=== PATIENT | female | born 1980 | race Caucasian/White ===

== ENCOUNTER 2016-07-18 06:41 | Inpatient (IN) | payer BC ==
[~2016-07-18] VITALS: Ht 157.5 cm; Wt 77.1 kg
[2016-07-18] VITALS (16 sets, daily range): BP systolic 111–138; BP diastolic 57–82
[~2016-07-18 06:41] MED LIST: Chromagen, Feogen, M PO; Motrin PO
[2016-07-18] MEDS ORDERED: PRENATAL TABLE1 EAC3 PO (07:20)
[2016-07-18] MEDS ORDERED: FISH OIL300 MG PO (07:21)
[2016-07-18] MEDS ORDERED: PROBIOTIC1 EAC1 PO (07:21)
[2016-07-18] MEDS ORDERED: TUMS500 MG PO (07:22)
[2016-07-18] MEDS ORDERED: ZANTAC150 MG PO (07:22)
[2016-07-18 09:57] LABS: EOSINOPHIL COUNT 0.1 K/uL (0-0.3); HEMATOCRIT 32.5 % (36.0-46.0); IMMATURE GRANULOCYTE (%) 0.6 % (0.0-0.7); IMMATURE GRANULOCYTE COUNT 0.1 K/uL; INSTRUMENT ABS NEUTROPHIL CT 7.2 K/uL; LYMPHOCYTE COUNT 1.3 K/uL (1.0-2.8); MCHC 34.5 G/DL (30.0-36.0); MCV 87.1 FL (83-99); MEAN PLAT.VOLUME 9.8 uM^3 (9.5-12.4); MONOCYTE (%) 5.7 % (3-12); MONOCYTE COUNT 0.5 K/uL (0-0.8); NEUTROPHIL COUNT 7.2 K/uL (1.8-6.4); PLATELET COUNT 168 K/uL (156-360); RBC DIS.WIDTH-SD 40.9 % (39-53); RED BLOOD COUNT 3.73 M/uL (3.80-5.20); WHITE BLOOD COUNT 9.3 K/uL (4.1-10.2)
[2016-07-18 11:48] LABS: HBSG INDEX 0.23
[2016-07-19 05:38] LABS: EOSINOPHIL (%) 0.5 % (0-5); EOSINOPHIL COUNT 0.1 K/uL (0-0.3); HEMATOCRIT 29.1 % (36.0-46.0); IMMATURE GRANULOCYTE (%) 0.6 % (0.0-0.7); IMMATURE GRANULOCYTE COUNT 0.1 K/uL; INSTRUMENT ABS NEUTROPHIL CT 10.7 K/uL; LYMPHOCYTE COUNT 1.6 K/uL (1.0-2.8); MCH 31.4 PG (29.0-34.0); MCHC 35.4 G/DL (30.0-36.0); MCV 88.7 FL (83-99); MONOCYTE (%) 8.1 % (3-12); MONOCYTE COUNT 1.1 K/uL (0-0.8); NEUTROPHIL (%) 79.2 % (45-76); NEUTROPHIL COUNT 10.7 K/uL (1.8-6.4); PLATELET COUNT 179 K/uL (156-360); RBC DIS.WIDTH-CV 13.2 % (11.8-14.6); RBC DIS.WIDTH-SD 42.5 % (39-53); RED BLOOD COUNT 3.28 M/uL (3.80-5.20)
[2016-07-19 05:41] LABS: WHITE BLOOD COUNT 13.5 K/uL (4.1-10.2)
[2016-07-19 07:00] VITALS: BP 129/60
[2016-07-19] MEDS ORDERED: Tylenol Extra Streng PO (14:42)
[2016-07-19] MEDS ORDERED: IBUPROFEN800 MG PO (14:43)
[2016-07-19 14:45] VITALS: BP 120/63
== END 2016-07-19 21:00 | disposition home or self-care (01) | DRG 775 ==
LOC: LDRP-OP 06:41 → 2WEST 06:42 → LDRP-OP 11:54 → 2WEST 16:26 → LDRP-OP 08-16 12:19
PROVIDERS: Advanced Practice Midwife; Obstetrics & Gynecology
DX: O48.0 Post-term pregnancy (principal); O99.824 Streptococcus B carrier state complicating childbirth; O70.0 First degree perineal laceration during delivery; O69.82X0 Labor and delivery complicated by other cord entanglement, without compression, not applicable or unspecified; Z3A.40 40 weeks gestation of pregnancy; Z37.0 Single live birth; Z87.891 Personal history of nicotine dependence
CPT/HCPCS: 85025; 87340; J2540; J3105; J7120